=== PATIENT | male | born 1945 | race Caucasian/White ===

== ENCOUNTER 2024-06-25 09:49 | Day surgery (SDC) | payer OTHER ==
[2024-06-21 11:34] LABS: BASOPHILS # (AUTO) 0.05 K/uL (0.00-0.20); BASOPHILS % (AUTO) 0.8 % (0.0-5.0); EOSINOPHILS % (AUTO) 1.7 % (0.0-8.0); HEMATOCRIT 48.4 % (42-54); IMMATURE GRANULOCYTE ABSOLUTE 0.02 K/uL (0-1); LYMPHOCYTES # (AUTO) 2.2 K/uL (1.0-4.8); LYMPHOCYTES % (AUTO) 36.4 % (21.0-51.0); MEAN CORPUSCULAR HEMOGLOBIN 30.3 pg (27.0-33.0); MEAN CORPUSCULAR HGB CONC 33.3 g/dL (32.0-36.0); MEAN CORPUSCULAR VOLUME 91.1 fL (79-99); MONOCYTES # (AUTO) 0.6 K/uL (0.1-1.0); MONOCYTES % (AUTO) 9.4 % (3.0-13.0); NEUTROPHILS # (AUTO) 3.1 K/uL (1.8-7.7); NEUTROPHILS % (AUTO) 51.4 % (40.0-77.0); PLATELET COUNT (AUTO) 201 K/uL (130-400); RED BLOOD CELL COUNT(AUTO) 5.31 MIL/uL (4.50-6.20); RED CELL DISTRIBUTION WIDTH 12.9 % (11.0-15.5)
[2024-06-21 11:40] VITALS: BP 153/85; PULSE 67; RESP 18
[2024-06-21 11:50] LABS: POTASSIUM 3.9 mmol/L (3.5-5.1)
[2024-06-25] VITALS (18 sets, daily range): BP systolic 132–165; BP diastolic 63–91; PULSE 58–80; RESP 14–18
[~2024-06-25] VITALS: Ht 190.5 cm; Wt 94.2 kg
[~2024-06-25 09:49] MED LIST: FINA5TAB41 PO; TAMS-1 PO
[2024-06-25] MEDS: ceFAZolin SODIUM 2 GM VIAL ONE (10:49)
[2024-06-25] MEDS: LACTATED RINGERS 1000ML 1,000 ML IV ONE (10:49)
[2024-06-25] MEDS ORDERED: KETAMINE 50MG/ML SYRINGE 50 MG/ML DISP.SYRIN ONE (11:53)
[2024-06-25] MEDS: INDOCYANINE GREEN 25 MG VIAL IJ ONE (11:56)
[2024-06-25] MEDS ORDERED: BUPIvacaine/PF 0.25% 10ML VIAL IJ ONE (12:01)
[2024-06-25] MEDS ORDERED: FENTanyl CITRate PF 50 MCG/1 ML 2ML VIAL ONE (12:32)
[2024-06-25] MEDS: acetaMINOPHEN 1,000 MG/100 ML VIAL IV ONE (12:57)
[2024-06-25] MEDS ORDERED: dexaMETHasone SOD PHOSPHATE 10MG/ML 1ML VIAL ONE (13:11)
[2024-06-25] MEDS ORDERED: ONDANSETRON 4MG INJ ONE (13:12)
[2024-06-25] MEDS ORDERED: ePHEDrine SULFate 50 MG/ML AMPULE ONE (13:24)
[2024-06-25] MEDS ORDERED: rocuRONium bROMide 10MG/1ML 5ML VL ONE (13:38)
[2024-06-25] MEDS: BUPIvacaine/PF 0.25% 30ML VIAL IJ ONE (14:03)
[2024-06-25] MEDS ORDERED: GLYCOPYRROLATE 0.2 MG/ML 5 ML VIAL ONE (14:14)
[2024-06-25] MEDS: KETOROLAC 15MG/ML VIAL (15MG/ML) ONE (15:55)
[2024-06-25] MEDS: ONDANSETRON 4MG INJ ONE (15:55)
[2024-06-25] MEDS: MORPHINE 4 MG SYG ONE (15:56)
[2024-06-25] MEDS: PHENYLEPHRINE HCL 10 MG/ML 1ML VIAL IV ONE (15:56)
[2024-06-25] MEDS ORDERED: IBUP-2077 PO (16:41)
== END 2024-06-25 17:15 | disposition home or self-care (01) ==
LOC: DAH 09:49
PROVIDERS: ATTEND Surgery
DX: K42.0 Umbilical hernia with obstruction, without gangrene (principal); K40.20 Bilateral inguinal hernia, without obstruction or gangrene, not specified as recurrent; I10 Essential (primary) hypertension; Z79.82 Long term (current) use of aspirin; Z79.899 Other long term (current) drug therapy
CPT/HCPCS: 80048; 85025; 36415; 93005; 49650; 49594; 88302; A6260; A4663; J7030; A4452; A4344; A4215 ×2; C1781 ×3; J7120; J3010; J1100; J0665; J3490 ×4; J2405 ×2; J2270; J1885; J0690; C1769; A4222; A4221; A4216; A4223 ×2; A4600; J2371

== ENCOUNTER 2025-10-21 11:48 | Emergency (ER) | payer OTHER ==
[~2025-10-21] VITALS: Ht 190.5 cm; Wt 90.7 kg
[~2025-10-21 11:48] MED LIST changes: +IBUP-2077 PO; -TAMS-1 PO; +TAMS-55 PO
[2025-10-21] MEDS: TRIAMCINOLONE ACETONIDE 40 MG/ML 1ML VIAL SQ ONE (12:20)
[2025-10-21] MEDS: ORPHENADRINE 60MG/2ML IM ONE (12:20)
--- NOTE | 2025-10-21 13:00 | ERN ---
ED Note History of Present Illness Stated Complaint: LOWER BACK PAIN Chief Complaint: Back Pain-No Injury Time Seen by MD: 11:50 Time Seen by Midlevel: 11:53 Dictation: 80-year-old male with no medical history coming in with complaints of lower back pain. Patient states it has been going on for little over a week. Patient denies any trauma, states he just got up too fast for bed. Went to [facility] about a week ago and was placed on a Medrol pack and baclofen. States he also did x-rays and they told him that everything was normal. Denies any recent trauma, weakness, numbness or tingling. No incontinence or saddle paresthesias. Allergies: Coded Allergies: prochlorperazine (Unverified Allergy, Unknown, RASH, 06/21/24) Home Meds Reported Medications Ibuprofen (Ibuprofen 800 mg Tab) 800 Mg Tab, 800 MG PO TID PRN for PAIN, TAB 06/25/24 Finasteride (Finasteride) 5 Mg Tablet, 5 MG PO DAILY, TAB 06/21/24 Tamsulosin HCl (Flomax) 0.4 Mg Cap.er.24h, 0.4 MG PO DAILY, CAPSULE. 06/21/24 Past Medical History Past Medical History: Prostatitis Surgical History: None Review of System Dictation Constitutional: Negative for fever,chills, and weight loss Eyes: Negative for injury, pain,redness, and discharge ENT: Negative for injury,pain or swelling Cardiovascular: Negative for chest pain, palpitations, and edema Respiratory: Negative for shortness of breath, cough, and wheezing, Abdomen/GI: Negative for abdominal pain, nausea, vomiting, diarrhea, and constipation Back: Negative for injury and pain : Negative for injury, bleeding and discharge MS/Extremity: Lower back pain Skin: Negative for rash, and discoloration Neuro: Negative for headache, weakness, numbness, tingling, and seizure Psych: Negative for suicide ideation, homicidal ideation, and hallucinations Review of Systems: was completed Initial Vital Sign VS Vital Signs Date Time Temp Pulse Resp B/P (MAP) Pulse Ox O2 Delivery O2 Flow Rate FiO2 10/21/25 11:50 98.6 95 16 149/98 95 Room Air 0 Physical Exam Dictation General: awake, alert, NAD Head/Face: Normocephalic, atraumatic Eyes: PERRL, EOMI, vision at baseline ENT: oral cavity clear, TMs clear, no signs of infection Neck: Trachea midline, supple, no nuchal rigidity Cardiovascular: RRR, normal S1/S2, No MRGs, no JVD Respiratory: CTAB, no respiratory distress, No rales or wheezes Abdomen: Soft, non-tender, non-distended, normal bowel sounds, no guarding or re bound. Skin: Warm, dry, normal turgor, no rash MS/Extremity: Pulses equal, no cyanosis, neurovascular intact, FROM Neuro: COAx4, GCS 15, strength 5/5, CN 2-12 intact, normal cerebellar exam, normal gait, Psych: Normal behavior, mood, and affect normal ED Course ED Course Orders Procedure Category Date Status Time Orphenadrine Citrate PHA 10/21/25 Complete (Norflex) 12:00 Triamcinolone Acet PHA 10/21/25 Complete 40mg/Ml 1ml (Kenalog 12:00 Current Medications Medications (Trade) Dose Ordered Sig/Melissa Route PRN Reason Start Time Stop Time Status Last Admin Dose Admin Orphenadrine Citrate (Norflex) 60 mg ONCE ONCE IM 10/21/25 12:00 10/21/25 12:01 DC 10/21/25 12:20 Triamcinolone Acetonide (Kenalog 40) 40 mg ONCE ONCE SQ 10/21/25 12:00 10/21/25 12:01 DC 10/21/25 12:20 Vital Signs Date Time Temp Pulse Resp B/P (MAP) Pulse Ox O2 Delivery O2 Flow Rate FiO2 10/21/25 11:50 98.6 95 16 149/98 95 Room Air 0 Medical Decision Making MDM MDM: [place] year old male presents with a lower back pain for over a week. Jean Pierre bill denies fall, trauma or injury and reports pain began after getting up too quickly from bed. He was evaluated at [facility] one week ago where lumbar x-ray were obtained and reportedly normal. On today's evaluation patient denies any red flag symptoms including saddle paresthesias, bowel or bladder incontinence, urinary retention, focal weakness, numbness, fever, weight loss or any history of malignancy. No IV drug use reported. Pain is localized in the lower back without any radicular symptoms. Physical exam reveals no focal neurological deficits, strength and sensation intact in bilateral lower extremities, no midline spinal tenderness. Gait is stable. Did not think you need with a consistent with a mechanical misplaced of the lower back pain likely secondary to muscle strain or spasm. When recent negative imaging, or patient's of trauma has been with symptoms running negative besides and additional imaging was not indicated at this time. The risk of further imaging outweigh the benefit. Sofiya ent was treated symptomatically in the ED with Kenalog and Norflex with the reporting improvement in pain. Patient is stable for discharge. Differential diagnosis: Your on chronic mechanical lower back pain, lumbar muscle strain/spasm Rationale: Tests considered and ordered secondary to shared decision making include: Previous outside records reviewed: Old ER visits. Risk of complication and/or morbidity or mortality of patient management: None Medications-Per medication reconciliation Need for hospitalization: Patient does not meet criteria for hospitalization. Need for emergency major/minor surgery: No There are no social concerns with this patient. Prescription drug management Prescriptions will include symptomatic care Patient's prior external medical records from other ER visits were reviewed by me as indicated. Prior testing and results from previous visits were reviewed. Prior tests were taken into account with medical decision making and resource utilization, independent historian/historians were used to obtain complete medical history. I independently interpreted the test that were performed, results were reviewed by me and considered findings on radiology if ordered. Medical management and examination interpretation discussions were had by me with other qualified healthcare professionals as indicated for the patient's care. DX & DISP Disposition: Discharge Departure Impression: Primary Impression: Lumbar pain Condition: Stable Additional Instructions: Continue taking the medications that were prescribed to you from moment. Follow up with the him in in 1-2 days. Return to the hospital if you develop any wea kness, numbness, incontinence of your of bladder or bowel. Referrals: LESLY ADAMSON MD (PCP) Time of Disposition: 12:59 I have reviewed the case, and I agree with, Diagnosis and Plan CHAU AMIN TOOL PROCUREMENT COORDINATOR Oct 21, 2025 13:00
[2025-10-21 13:11] VITALS: BP 141/79; PULSE 84; RESP 16; TEMP 98.6; O2SAT 96
== END 2025-10-21 13:18 | disposition home or self-care (01) ==
LOC: EDH 11:48
DX: M54.50 Low back pain, unspecified (principal); X50.1XXA Overexertion from prolonged static or awkward postures, initial encounter; Y93.89 Activity, other specified; Y92.89 Other specified places as the place of occurrence of the external cause; Y99.8 Other external cause status
CPT/HCPCS: 99284; 96372 ×2; J3301; J2360